=== PATIENT | female | born 1965 | race African-American/Black ===

== ENCOUNTER 2018-08-09 09:19 | Emergency (ER) | payer MEDICAID ==
[~2018-08-09] VITALS: Ht 175.3 cm; Wt 81.0 kg
[2018-08-09 09:27] VITALS: BP 135/83
[2018-08-09] MEDS ORDERED: TETANUS, DIPHTHERIA, PERTUSSIS VAC/PF 0.5ML (>7YR OLD) IM ONE (11:30)
[2018-08-09] MEDS ORDERED: DIPHENHYDRAMINE 25MG CAPSULE PO ONE (11:30)
[2018-08-09] MEDS ORDERED: CEFTRIAXONE SODIUM 1 G/VIAL IM ONE (11:30)
[2018-08-09] MEDS ORDERED: LIDOCAINE HCL 1% 20ML VIAL (Pyxis) INJ INFIL ONE (11:30)
== END 2018-08-09 12:56 | disposition home or self-care (01) ==
LOC: ER 09:19
DX: H10.023 Other mucopurulent conjunctivitis, bilateral (principal); H05.012 Cellulitis of left orbit; I10 Essential (primary) hypertension; K21.9 Gastro-esophageal reflux disease without esophagitis; Z90.49 Acquired absence of other specified parts of digestive tract; Z88.8 Allergy status to other drugs, medicaments and biological substances
CPT/HCPCS: 90471; 90715; 96372; 99283; J0696; J3490; Q0163

== ENCOUNTER 2021-08-05 10:01 | Emergency (ER) | payer MEDICAID ==
[~2021-08-05] VITALS: Ht 162.6 cm; Wt 75.0 kg
[2021-08-05] MEDS ORDERED: DEXAMETHASONE 10 MG/ML VIAL IV ONE (10:30)
[2021-08-05] MEDS ORDERED: KETOROLAC 15MG/ML VIAL IV ONE (10:30)
[2021-08-05 10:51] VITALS: BP 136/100
[2021-08-05 10:53] LABS: BASOPHILS % 0.4 % (0.0-2.0); EOSINOPHILS % 0.1 % (0.0-5.0); HEMATOCRIT. 38.5 % (36.0-48.0); HEMOGLOBIN. 12.4 g/dL (12.0-16.0); LYMPHOCYTES % 15.2 % (20.0-50.0); MEAN CORPUSCULAR HEMOGLOBIN 26.7 pg (28.0-32.0); MEAN CORPUSCULAR VOLUME 82.8 fL (81.0-99.0); MEAN PLATELET VOLUME 9.5 fl (7.4-10.4); MONOCYTES % 8.5 % (2.0-8.0); NEUTROPHILS % 75.8 % (40.0-76.0); PLATELET 181 x1000/uL (130-400); RED BLOOD CELL COUNT 4.65 mill/uL (4.2-5.4); RED CELL DISTRIBUTION WIDTH 14.2 % (11.6-14.6)
[2021-08-05 11:01] LABS: CHLORIDE 110 mEq/L (98-107)
[2021-08-05 11:11] LABS: MONOTEST NEGATIVE (NEGATIVE)
[2021-08-05] MEDS ORDERED: CLINDAMYCIN 600 MG PREMIX 50 ML IV NR (12:00)
[2021-08-05] MEDS ORDERED: CLINDAMYCIN 600 MG in DEXTROSE 5% WATER 50 ML IV ONE (12:00)
[2021-08-05] MEDS ORDERED: CEFTRIAXONE 2 G PREMIX 50 ML IV ONE (12:15)
[2021-08-05] MEDS ORDERED: CEFTRIAXONE 2 G in DEXTROSE 5% WATER 50 ML IV SCH (12:30)
[2021-08-05] MEDS ORDERED: AMOX-424 MT (13:32)
[2021-08-05] MEDS ORDERED: CLIN-194 MT (13:32)
[2021-08-05] MEDS ORDERED: P20 MT (13:32)
[2021-08-06] MEDS ORDERED: IOHEXOL-300 100 ML BOTTLE ONE (07:59)
== END 2021-08-05 13:54 | disposition home or self-care (01) ==
LOC: ER 10:14
DX: J36 Peritonsillar abscess (principal); E87.6 Hypokalemia; K21.9 Gastro-esophageal reflux disease without esophagitis; Z90.49 Acquired absence of other specified parts of digestive tract; Z88.8 Allergy status to other drugs, medicaments and biological substances
CPT/HCPCS: 36415; 70491; 80048; 85025; 86308; 87040; 87070; 87430; 96365; 96368; 96375; 99285; J0696; J1100; J1885; J3490; J7060; Q9967

== ENCOUNTER 2021-11-26 22:44 | Emergency (ER) | payer MEDICAID ==
[~2021-11-26] VITALS: Ht 172.7 cm; Wt 77.0 kg
[~2021-11-26 22:44] MED LIST: AMOX-424 MT; CLIN-194 MT; P20 MT
[2021-11-26] MEDS ORDERED: HYDROCODONE/ACETAMINOPHEN 10/325MG TABLET PO ONE (23:00)
[2021-11-27] MEDS: ONDANSETRON 4MG ODT PO ONE ×2 (00:29→00:31)
[2021-11-27] MEDS ORDERED: KETOROLAC 60MG/2ML VIAL IM ONE (00:30)
[2021-11-27] MEDS ORDERED: HYDROCODONE/ACETAMINOPHEN 5/325MG TABLET PO ONE (00:30)
[2021-11-27 00:37] VITALS: BP 137/81
[2021-11-27] MEDS ORDERED: IBUP-2029 MT (02:16)
== END 2021-11-27 02:39 | disposition home or self-care (01) ==
LOC: ER 22:44
DX: S82.442A Displaced spiral fracture of shaft of left fibula, initial encounter for closed fracture (principal); W17.89XA Other fall from one level to another, initial encounter; Y93.89 Activity, other specified; Y92.89 Other specified places as the place of occurrence of the external cause; Z88.8 Allergy status to other drugs, medicaments and biological substances
CPT/HCPCS: 29515; 73610; 96372; 99283; J1885